=== PATIENT | female | born 1980 ===

== ENCOUNTER 2017-09-28 14:45 | Emergency (ER) | payer OTHER ==
[2017-09-28 14:56] VITALS: BP 120/82; PULSE 67; RESP 16; TEMP 98.4; O2SAT 100
--- NOTE | 2017-09-28 15:38 | ED PDOC ---
HPI: Female Pain Chief Complaint (Provider): burning on urination, suprapubic pain History Per: Patient History/Exam Limitations: no limitations Onset/Duration Of Symptoms: Days Current Symptoms Are (Timing): Still Present Associated Symptoms: Back Pain. denies: Fever, Chills, Nausea, Vomiting, Loss Of Appetite Alleviating Factors: None Additional Complaint(s): 37 yo female with no medical problems presents for evaluation of suprapubic fullness and pain on urination x 2 days. No fever/chills. Pt reports mild bilateral lower back pain. No abdominal pain. No N/V/D. Pt states she noticed some blood in the urine today. <Alma Dunne - Last Filed: 09/28/17 15:35> <Angelica Love - Last Filed: 10/03/17 17:14> Time Seen by Provider: 09/28/17 15:00 Chief Complaint (Nursing): Female Genitourinary Past Medical History Reviewed: Historical Data, Nursing Documentation, Vital Signs Vital Signs: Last Vital Signs Temp 98.4 F 09/28/17 14:54 Pulse 67 09/28/17 14:54 Resp 16 09/28/17 14:54 BP 120/82 09/28/17 14:54 Pulse Ox 100 09/28/17 14:54 - Medical History PMH: No Chronic Diseases - Surgical History Surgical History: No Surg Hx - Family History Family History: States: No Known Family Hx - Living Arrangements Living Arrangements: With Family - Social History Current smoker - smoking cessation education provided: No <Alma Dunne - Last Filed: 09/28/17 15:35> Vital Signs: Last Vital Signs Temp 98.4 F 09/28/17 14:54 Pulse 67 09/28/17 14:54 Resp 16 09/28/17 14:54 BP 120/82 09/28/17 14:54 Pulse Ox 100 09/28/17 15:42 <Angelica Love - Last Filed: 10/03/17 17:14> - Home Medications Home Medications: Ambulatory Orders Medication Instructions Recorded Ciprofloxacin [Cipro] 500 mg PO BID #10 tab 09/28/17 - Allergies Allergies/Adverse Reactions: Allergies Allergy/AdvReac Type Severity Reaction Status Date / Time No Known Allergies Allergy Verified 09/28/17 14:54 Review of Systems ROS Statement: Except As Marked, All Systems Reviewed And Found Negative Constitutional: Negative for: Fever, Chills Cardiovascular: Negative for: Chest Pain Respiratory: Negative for: Cough, Shortness of Breath Gastrointestinal: Positive for: Abdominal Pain. Negative for: Nausea, Vomiting , Diarrhea Genitourinary Female: Positive for: Dysuria, Hematuria. Negative for: Frequency , Incontinence <Alma Dunne - Last Filed: 09/28/17 15:35> Physical Exam - Reviewed Nursing Documentation Reviewed: Yes Vital Signs Reviewed: Yes - Physical Exam Appears: Positive for: Well, Non-toxic, No Acute Distress Head Exam: Positive for: ATRAUMATIC, NORMAL INSPECTION, NORMOCEPHALIC Skin: Positive for: Normal Color, Warm, DRY Eye Exam: Positive for: Normal appearance ENT: Positive for: Normal ENT Inspection Neck: Positive for: Normal Cardiovascular/Chest: Positive for: Regular Rate, Rhythm Respiratory: Positive for: Normal Breath Sounds. Negative for: Accessory Muscle Use, Respiratory Distress Gastrointestinal/Abdominal: Positive for: Normal Exam, Soft. Negative for: Tenderness Back: Positive for: Normal Inspection Extremity: Positive for: Normal ROM Neurologic/Psych: Positive for: Alert, Oriented <Alma Dunne - Last Filed: 09/28/17 15:35> - ECG O2 Sat by Pulse Oximetry: 100 <Alma Dunne - Last Filed: 09/28/17 15:35> Medical Decision Making Medical Decision Making: (+) leuks in urine Urine culture pending. <Alma Dunne - Last Filed: 09/28/17 15:35> Disposition - Patient ED Disposition Is Patient to be Admitted: No Counseled Patient/Family Regarding: Diagnosis, Need For Followup, Rx Given - Disposition Disposition: Routine/Home Disposition Time: 15:37 <Alma Dunne - Last Filed: 09/28/17 15:35> <Angelica Love - Last Filed: 10/03/17 17:14> - Clinical Impression Clinical Impression: Urinary tract infection - Disposition Referrals: [facility] [Outside] Condition: STABLE Prescriptions: Ciprofloxacin [Cipro] 500 mg PO BID #10 tab Instructions: Urinary Tract Infections in Adults Forms: [employer] [facility] ([place]), [facility] ED School/Work Excuse
== END 2017-09-28 16:02 | disposition home or self-care (01) ==
LOC: H.ER 14:45
DX: N39.0 Urinary tract infection, site not specified (principal)